=== PATIENT | female | born 1980 | race American Indian/Alaskan Native ===

== ENCOUNTER 2017-03-17 14:35 | Outpatient (CLI) | payer BC ==
--- NOTE | 2017-03-18 14:45 | Mammography Report ---
Screening mammogram: Baseline examination. Routine views demonstrates a circumscribed, round focal asymmetry in the inferior right breast measuring 8 mm. In the relatively central superomedial left breast there is a focal dense asymmetry with irregular contour. There is some calcification in what appears to be the bradley of the tubular structure in the medial right breast. This most probably represents a vascular structure. The breast pattern is otherwise heterogeneously dense and unremarkable. CAD used. Impression: Bilateral breast asymmetries. Recommendations: Additional spot compression imaging of each breast and ultrasound is needed. BI-RADS CATEGORY: 0 = Needs additional imaging evaluation ACR BI-RADS MAMMOGRAPHIC CODES: 0 = Needs additional imaging evaluation; 1 = Negative; 2 = Benign; 3 = Probably benign; 4 = Suspicious; 5 = Malignant; 6 = Known biopsy-proven malignancy COMMENT: 1. Dense breast tissue, i.e., adenosis, fibrocystic changes, etc., may obscure an underlying neoplasm. 2. Approximately 10% of cancers are not detected with mammography. 3. A negative mammography report should not delay biopsy if a clinically suspicious mass is present.
== END 2017-03-17 14:36 | disposition home or self-care (01) ==
LOC: MAMMO 14:35
PROVIDERS: ATTEND Obstetrics & Gynecology
DX: Z12.31 Encounter for screening mammogram for malignant neoplasm of breast (principal)
CPT/HCPCS: 77067; G0202

== ENCOUNTER 2017-04-23 12:47 | Outpatient (CLI) | payer BC ==
--- NOTE | 2017-04-23 14:19 | Mammography Report ---
BILATERAL DIGITAL DIAGNOSTIC MAMMOGRAM and RIGHT BREAST ULTRASOUND: 04/23/17 12:47:00 CLINICAL: Recalled for bilateral asymmetries. COMPARISON:03/17/17 screening FINDINGS: Bilateral ML and spot compression views were performed. A partially circumscribed right lower asymmetry persists on all views.Satisfactory effacement of left asymmetries. Ultrasound of the lower inner right breast was performed and demonstrated a solid hypoechoic oval relatively smooth mass at 5 o'clock 5 cm from the nipple. It measures 1.3 x 0.8 x 0.5 cm and correlates with the mammographic asymmetry. IMPRESSION: A probably benign solid 1.3 cm right breast mass at 5 o'clock. Recommend six month followup right mammogram and right breast ultrasound.Negative left breast. BI-RADS CATEGORY: 3 - - Probably Benign ACR BI-RADS MAMMOGRAPHIC CODES: 0 = Needs additional imaging evaluation; 1 = Negative; 2 = Benign; 3 = Probably benign; 4 = Suspicious; 5 = Malignant; 6 = Known biopsy-proven malignancy COMMENT: 1. Dense breast tissue, i.e., adenosis, fibrocystic changes, etc., may obscure an underlying neoplasm. 2. Approximately 10% of cancers are not detected with mammography. 3. A negative mammography report should not delay biopsy if a clinically suspicious mass is present. COMMENT: Patient follow-up letters are generated via our [employer] application.
== END 2017-04-23 12:48 | disposition home or self-care (01) ==
LOC: MAMMO 12:47
PROVIDERS: ATTEND Obstetrics & Gynecology
DX: N63 Unspecified lump in breast (principal)
CPT/HCPCS: 76642; G0204; 77066